=== PATIENT | male | born 1945 | race Caucasian/White ===

== ENCOUNTER 2021-03-21 13:51 | Outpatient (CLI) | payer MEDICARE, OTHER, SELFPAY ==
--- NOTE | ~2021-03-21 | XR_ITS ---
XR lumbar spine 2-3V DATE: 03/21/2021 14:13 INDICATION: Low back pain TECHNIQUE: AP, lateral, coned lateral lumbosacral views COMPARISON: None FINDINGS: There is prominent degenerative spurring of the lower thoracic spine. There is moderately severe degenerative disc disease at L1 to. There is moderate degenerative disease at L3-4 and L4-5 and severe degenerative disc disease at L5-S1. There is prominent degenerative change at the apophyseal joints of the mid and lower lumbar and lumbo sacral area with associated grade 1 anterolisthesis at L4-5. The included lower thoracic and lumbar pedicles are intact. No fracture or bone destruction of the safia mbar spine. The sacroiliac joints are intact. IMPRESSION: Degenerative changes of the thoracic and lumbar spine Reviewed, dictated and finalized at location B.
== END 2021-03-21 13:52 | disposition home or self-care (01) ==
LOC: ANHIMG 13:57
PROVIDERS: PCP Family Medicine; Visit Provider Nurse Practitioner Family
DX: M51.34 Other intervertebral disc degeneration, thoracic region (principal); M51.36 Other intervertebral disc degeneration, lumbar region
CPT/HCPCS: 72100

== ENCOUNTER 2022-09-28 08:17 | Outpatient (CLI) | payer MEDICARE, OTHER, SELFPAY ==
--- NOTE | 2022-10-13 17:24 | WPDSLEEPSTUD ---
Sleep Study Date of Study: 09/28/22 Ordering Provider: Arnav You DO Interpreting Physician: Amanda Huber MD Sleep Study Type: Polysomnogram Height: 1.78 m Weight: 104.326 kg Body Mass Index: 33.0 Neck Circumference (inches): 17 [place]: 10 Reason for Sleep Study Hypersomnia Sleep History Dereje Domingo is a 77-year-old man with complaints of difficulty sleeping for several years. He wakes up 3 times on average per night to urinate. He was referred for sleep study after a diagnosis of atrial fibrillation. He almost never gets a completely full restful night of sleep. he rarely awakens from sleep feeling short of breath. He occasionally awakens at night with heartburn, belching or coughing. He occasionally snores but rarely loudly enough that others complain about it. He frequently has trouble sleeping with a cold. He does not wake up gasping for breath at night. He rarely has breathing problems at night observed by others. He rarely sweats excessively at night. He rarely notices his heart pounding or beating irregularly at night. He frequently falls asleep during the day, rarely falls asleep involuntarily, never falls asleep while driving. He does not have loss of muscle tone with strong emotion. He does not have daytime difficulties due to excessive sleepiness. He rarely feels paralyzed on waking or falling asleep. He occasionally has vivid dreamlike scenes on waking or falling asleep. He has never frayed to go to sleep. He occasionally has nightmares. He rarely remembers his dreams. He frequently has racing thoughts. He rarely feels sad or depressed. He occasionally has anxiety. He rarely has muscular tension. He rarely notices parts of his body jerking. He rarely kicks at night. He occasionally has crawling and aching feelings in his legs. Occasionally has leg cramps. He does not morning jaw pain. He does not grind his teeth at night. He occasionally is bothered by pain during the day. He indicates that he has rheumatoid arthritis, leg cramps, and he has early stage neuropathy. He rarely is awakened by pain at night other than leg cramps. He frequently wakes up feeling stiff in the morning in his hands. He rarely wakes up with sore achy muscles. He does not wake up with pain in the neck and spine. He has insomnia, he takes antacids regularly for Grover's esophagus. He has palpitations. he has not had a change in his weight in the last year. Normal bedtime is 9:00 p.m. falling asleep within 10 minutes, waking 3 or 4 times at night to urinate. Sometimes while awake at night, he will get a drink of water and sometimes he will lie in bed awake trying to get back to sleep. It can take him up to an hour and a half to return to sleep although it is usually 10 minutes. He wakes in the morning by 6:15. He keeps the same schedule on the weekends. He estimates getting between 5-7 hours of interrupted sleep at night. He takes naps in the afternoon or evening however short naps are not refreshing. He feels better in the morning compared to other times of day. Habits: Quit tobacco 52 years ago. Previously drank caffeine, 3 cups a day. Not any more. Alcohol 3-4 drinks per week. 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
[2022-10-17 14:15] VITALS: BMI 33.0
== END 2022-09-29 07:01 | disposition home or self-care (01) ==
LOC: ANHCSM 08:20
PROVIDERS: PCP Family Medicine; Visit Provider Internal Medicine Cardiovascular Disease
DX: G47.10 Hypersomnia, unspecified (principal)
CPT/HCPCS: 95810

== ENCOUNTER 2022-10-18 09:20 | Outpatient (CLI) | payer MEDICARE, OTHER, SELFPAY ==
--- NOTE | 2022-10-18 11:00 | NEURO_ITS ---
Impression: Patient reports a history of paresthesias in both feet. # Evidence of symmetric sensorimotor polyneuropathy. # Chronic neurogenic changes noted in bilateral EDB, bilateral gastrocnemius, right tibialis anterior and left flexor digitorum longus muscle indicating axonal changes, which could be secondary to neuropathy. # Clinical correlation recommended. Nerve Conduction Studies Anti Sensory Summary Table Stim Site NR Peak (ms) P-T Amp (?V) Site1 Site2 Delta-P (ms) Dist (cm) Mc (m/s) Left Sup Fibular Anti Sensory (Ant Lat Mall) 14 cm 4.5 13.5 14 cm Ant Lat Mall 4.5 16.0 36 Right Sup Fibular Anti Sensory (Ant Lat Mall) 14 cm 4.6 12.2 14 cm Ant Lat Mall 4.6 16.0 35 Left Sural Anti Sensory (Lat Mall) Calf 4.2 14.7 Calf Lat Mall 4.2 16.0 38 Right Sural Anti Sensory (Lat Mall) Calf 4.4 8.8 Calf Lat Mall 4.4 16.0 36 Motor Summary Table Stim Site NR Onset (ms) O-P Amp (mV) Site1 Site2 Delta-0 (ms) Dist (cm) Mc (m/s) Left Peroneal Motor (Vastus Med) Ankle 4.9 0.6 Popit Ankle 13.8 46.0 33 Popit 18.7 0.8 B Fib Ankle 10.6 36.0 34 B Fib 15.5 0.8 Right Peroneal Motor (Vastus Med) NO RESPONSE Ankle NR Popit Ankle 0.0 Popit NR B Fib Ankle 0.0 B Fib NR Left Tibial Motor (Abd Fitzpatrick Brev) Ankle 4.5 0.7 Knee Ankle 13.2 44.0 33 Knee 17.7 0.2 Right Tibial Motor (Abd Fitzpatrick Brev) Ankle 4.5 0.9 Knee Ankle 11.7 43.0 37 Knee 16.2 0.4 F Wave Studies NR F-Lat (ms) L-R F-Lat (ms) Left Peroneal (Mrkrs) (EDB) NO RESPONSE NR Right Peroneal (Mrkrs) (EDB) NO RESPONSE NR Left Tibial (Mrkrs) (Abd Hallucis) 65.38 Right Tibial (Mrkrs) (Abd Hallucis) NO RESPONSE NR EMG Side Muscle Nerve Root Ins Act Fibs Amp Dur Recrt Comment Right AntTibialis Dp Br Fibular L4-5 Nml Nml Nml Nml Reduced Right Gastroc Tibial S1-2 Nml Nml Nml Nml Reduced Right Fibularis Long Sup Br Fibular L5-S1 Nml Nml Nml Nml Nml Right Flex Dig Long Tibial L5-S2 Nml Nml Nml Nml Nml Right Ext Dig Brev Dp Br Fibular L5, S1 Nml Nml Incr Nml Reduced Left AntTibialis Dp Br Fibular L4-5 Nml Nml Nml Nml Nml Left Gastroc Tibial S1-2 Nml Nml Nml Nml Reduced Left Fibularis Long Sup Br Fibular L5-S1 Nml Nml Nml Nml Nml Left Flex Dig Long Tibial L5-S2 Nml Nml Nml Nml Reduced Left Ext Dig Brev Dp Br Fibular L5, S1 Nml Nml Incr Nml Reduced MTDD
== END 2022-10-18 09:21 | disposition home or self-care (01) ==
PROVIDERS: PCP Family Medicine; Visit Provider Physician Assistant
DX: G62.9 Polyneuropathy, unspecified (principal)
CPT/HCPCS: 95886; 95910

== ENCOUNTER 2022-10-20 10:59 | Outpatient (CLI) | payer MEDICARE, OTHER, SELFPAY ==
--- NOTE | 2022-11-10 01:12 | WPDSLEEPSTUD ---
Sleep Study Date of Study: 10/20/22 Ordering Provider: Arnav You DO Interpreting Physician: Amanda Huber MD Sleep Study Type: CPAP Titration Height: 1.78 m Weight: 104.326 kg Body Mass Index: 33.0 Neck Circumference (inches): 17.5 [place]: 10 Reason for Sleep Study * 09/28/2022, basic polysomnogram with mild obstructive sleep apnea, apnea-hypopnea index 6.4, desaturation 83% with mild snoring. He also has periodic limb movements disorder. PLM arousal index 94.9. Sleep History [place] Dom[place] is a 77-year-old man with complaints?of difficulty sleeping for several years.? He wakes up 3 times on average per night to urinate.? He was referred for sleep study after a diagnosis of atrial fibrillation.? He almost never gets a completely full restful night of sleep. ? he rarely awakens from sleep feeling short of breath.? He occasionally awakens at night with heartburn, belching or coughing.? He occasionally snores but rarely loudly enough that others complain about it.? ? He frequently has trouble sleeping with a cold.? He does not wake up gasping for breath at night.? He rarely has breathing problems at night observed by others.? He rarely sweats excessively at night.? He rarely notices his heart pounding or beating irregularly at night.? He frequently falls asleep during the day, rarely falls asleep involuntarily, never falls asleep while driving.? He does not have loss of muscle tone with strong emotion.? He does not have daytime difficulties due to excessive sleepiness.? He rarely feels paralyzed on waking or falling asleep.? He occasionally has vivid dreamlike scenes on waking or falling asleep.? He has never frayed to go to sleep.? He occasionally has nightmares.? He rarely remembers his dreams.? He frequently has racing thoughts.? He rarely feels sad or depressed.? He occasionally has anxiety.? He rarely has muscular tension.? He rarely notices parts of his body jerking.? He?rarely kicks at night.? He?occasionally has crawling and aching feelings in his legs.? Occasionally has leg cramps.? He does not morning jaw pain.? He does not grind his teeth at night.? He occasionally is bothered by pain during the day.? He indicates that he has rheumatoid arthritis, leg cramps, and he has early stage neuropathy.? He rarely is awakened by pain at night other than leg cramps.? He frequently wakes up feeling stiff in the morning in his hands.? He rarely wakes up with sore achy muscles.? He does not wake up with pain in the neck and spine.? He has insomnia, he takes antacids regularly for Grover's esophagus.? He has palpitations. ? he has not had a change in his weight in the last year. Normal bedtime is 9:00 p.m. falling asleep within 10 minutes, waking 3 or 4 times at night to urinate. Sometimes while awake at night, he will get a drink of water and sometimes he will lie in bed awake trying to get back to sleep.? It can take him up to an hour and a half to return to sleep although it is usually 10 minutes.? He wakes in the morning by 6:15.? He keeps the same schedule on the weekends.? He estimates getting between 5-7 hours of interrupted sleep at night.? He takes naps in the afternoon or evening however short naps are not refreshing.? He feels better in the morning compared to other times of day. Habits: ? Quit tobacco 52 years ago.? Previously drank caffeine, 3 cups a day.? Not any more.? Alcohol 3-4 drinks per week.? 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
[2022-11-10 01:27] VITALS: BMI 33.0
== END 2022-10-23 12:21 | disposition home or self-care (01) ==
PROVIDERS: PCP Family Medicine; Visit Provider Internal Medicine Cardiovascular Disease
DX: G47.33 Obstructive sleep apnea (adult) (pediatric) (principal); G47.61 Periodic limb movement disorder; I48.91 Unspecified atrial fibrillation; I10 Essential (primary) hypertension; K21.9 Gastro-esophageal reflux disease without esophagitis; E66.9 Obesity, unspecified; Z68.33 Body mass index [BMI] 33.0-33.9, adult; Z87.891 Personal history of nicotine dependence
CPT/HCPCS: 95811

== ENCOUNTER 2022-10-25 13:34 | Outpatient (CLI) | payer MEDICARE, OTHER, SELFPAY ==
--- NOTE | 2022-10-25 13:43 | ECHO_ITS ---
Patient Info Name: Dereje Domingo Age: 77 years : 1945 Gender: Male Ht: 70 in Wt: 235 lbs BSA: 2.33 m2 HR: 78 bpm BP: 127 / 68 mmHg Heart Rhythm: Atrial Fibrillation Technical Quality: Fair Exam Date: 10/25/2022 2:11 PM Exam Location: [facility] Patient Status: Outpatient Admit Date: 10/25/2022 Staff Ordering Physician: Arnav You DO Curatorial Assistant: Griselda Griffin RDCS Attending Provider: Arnav You DO Referring Physician: Avelino BURNETT; Exam Type: CA echo doppler color flow Study Info Indications - atrial fibrillation Complete two-dimensional, color flow and Doppler transthoracic echocardiogram is performed. Summary 1. Complete two-dimensional, color flow and Doppler transthoracic echocardiogram is performed. 2. Left ventricular chamber dimension is normal. 3. Left ventricular systolic function is normal, estimated at 60-65%. 4. There is mild concentric increased left ventricular wall thickness. 5. The left ventricular diastolic function is abnormal. 6. E/e' 10 is mildly elevated. 7. Atrial fibrillation. 8. Left atrial chamber dimension is moderately enlarged. 9. Right atrial chamber dimension is mildly enlarged. 10. There is mild aortic valve sclerosis. 11. The mitral valve has mildly calcified annulus. 12. There is mild mitral valve regurgitation. 13. No pulmonary hypertension, estimated pulmonary arterial systolic pressure is 26 mmHg. Left Ventricle E/e' 10 is mildly elevated. Atrial fibrillation. Left ventricular chamber dimension is normal. Left ventricular systolic function is normal, estimated at 60-65%. There is mild concentric increased left ventricular wall thickness. The left ventricular diastolic function is abnormal. Right Ventricle Right ventricular chamber dimension is normal. Right ventricular systolic function is normal. Left Atria Left atrial chamber dimension is moderately enlarged. Right Atria Right atrial chamber dimension is mildly enlarged. Aortic Valve The aortic valve is trileaflet. There is mild aortic valve sclerosis. There is no aortic valve stenosis. There is no aortic valve regurgitation. Pulmonic Valve There is no pulmonic regurgitation. Mitral Valve The mitral valve has mildly calcified annulus. There is no mitral valve stenosis. There is mild mitral valve regurgitation. Tricuspid Valve There is no tricuspid valve regurgitation. No pulmonary hypertension, estimated pulmonary arterial systolic pressure is 26 mmHg. Pericardium/Pleural There is no pericardial effusion. Inferior Vena Cava Normal inferior vena cava with >50% collapse upon inspiration consistent with normal right atrial pressure, 5 mmHg. Aorta The aortic root size at the sinus of Valsalva is normal. Left Ventricular Outflow Tract Name Value Normal LVOT 2D LVOT Diameter 2.1 cm LVOT Doppler LVOT Peak Gradient 5 mmHg LVOT Mean Gradient 3 mmHg LVOT VTI 20 cm LVOT VTI/AV VTI Ratio 0.9 LVOT Stroke Volume 74 ml LVOT CO 16.8 l/min LVOT CI
== END 2022-10-25 13:35 | disposition home or self-care (01) ==
LOC: ANHCARD 13:34
PROVIDERS: PCP Family Medicine; Visit Provider Internal Medicine Cardiovascular Disease
DX: I48.91 Unspecified atrial fibrillation (principal); I34.0 Nonrheumatic mitral (valve) insufficiency
CPT/HCPCS: 93306

== ENCOUNTER 2023-07-31 14:29 | Outpatient (CLI) | payer MEDICARE, OTHER, SELFPAY ==
[2023-07-31 14:46] LABS: Basophils Absolute Auto 0.1 K/mm3 (0.0-0.1); Basophils Percent Auto 0.7 % (0.2-1.2); Eosinophils Absolute Auto 0.3 K/mm3 (0-0.3); Eosinophils Percent Auto 4.2 % (0-4.4); Hematocrit 43.2 % (42.0-52.0); Immature Granulocyte Absolute 0.01 K/mm3 (0.00-0.031); Immature Granulocyte Percent A 0.1 % (0-0.5); Lymphocytes Percent Auto 26.7 % (18.3-44.2); Mean Corpuscular HGB Conc 34.7 g/dl (32-36); Mean Corpuscular Hemoglobin 34.6 pg (26-34); Mean Corpuscular Volume 99.5 fl (80-100); Mean Platelet Volume 8.8 fl (7.4-10.4); Monocytes Absolute Auto 0.6 K/mm3 (0.1-0.6); Monocytes Percent Auto 7.7 % (2.6-8.5); Neutrophils Absolute Auto 4.3 K/mm3 (1.3-6.7); Neutrophils Percent Auto 60.6 % (45.5-73.1); Platelet Count Result 348 k/mm3 (150-375); Red Blood Count 4.34 M/mm3 (4.6-6.20); Red Cell Distribution Width 12.1 % (11.5-14.5); White Blood Count 7.1 K/mm3 (4.5-10.0)
[2023-07-31 16:51] LABS: Immunoglobulin A 65 mg/dL (70-400); Immunoglobulin G 1569 mg/dL (700-1600); Immunoglobulin M 48 mg/dL (40-230)
[2023-07-31 17:04] LABS: Alanine Aminotransferase 23 U/L (6-50); Albumin Level 4.1 g/dL (3.5-5.1); Alkaline Phosphatase 76 U/L (38-126); Anion Gap 8 mmol/L (8-16); Aspartate Amino Transferase 30 U/L (17-59); Bilirubin,Total 0.5 mg/dL (0.2-1.3); Blood Urea Nitrogen 19 mg/dL (9-20); Calcium 9.2 mg/dL (8.4-10.2); Carbon Dioxide 23 mmol/L (22-30); Chloride 102 mmol/L (98-107); Estimated Glomerular Filt Rate > 60; Glucose 132 mg/dL (65-110); Potassium 4.1 mmol/L (3.4-5.0); Sodium 133 mmol/L (137-145)
[2023-08-01 23:53] LABS: Kappa\\Lambda Light Chains 0.15 (0.26-1.65); Lambda Light Chain 81.1 mg/L (5.7-26.3)
[2023-08-03 19:28] LABS: Albumin 3.9 g/dL (3.8-4.8); Alpha 1 Globulin 0.3 g/dL (0.2-0.3); Alpha 2 Globulin 0.8 g/dL (0.5-0.9); Beta 1 Globulin 0.4 g/dL (0.4-0.6); Gamma Globulin 1.3 g/dL (0.8-1.7); Protein, Total 6.8 g/dL (6.1-8.1)
== END 2023-07-31 14:30 | disposition home or self-care (01) ==
LOC: ANHLAB 14:32
PROVIDERS: PCP Family Medicine; Visit Provider Internal Medicine Hematology & Oncology
DX: D47.2 Monoclonal gammopathy (principal)
CPT/HCPCS: 36415; 80053; 82784; 83883; 84155; 84165; 85025

== ENCOUNTER 2023-08-01 12:27 | Outpatient (CLI) | payer MEDICARE, OTHER, SELFPAY ==
--- NOTE | ~2023-08-01 | XR_ITS ---
EXAMINATION: BONE SURVEY/METASTATIC SURVEY DATE: 08/01/2023 INDICATION: MGUS. Assess for multiple myeloma. TECHNIQUE: A skeletal survey was performed including AP views of the chest, abdomen and pelvis; AP an d lateral/lateral swimmers views of the cervical, thoracic and lumbar spine; lateral view of the skul l, and AP and lateral views of the appendicular skeleton excluding the hands and feet. COMPARISON: Chest radiograph dated 06/27/2019 FINDINGS: Mild streaky opacities at bilateral lung bases and favor atelectasis over pneumonia. Heart size is no rmal. Large hiatal hernia. Moderate spondylosis throughout the cervical, thoracic and lumbar spine. U nchanged chronic mild anterior wedging of several mid to lower thoracic vertebral bodies. No suspicio us lytic or blastic bone lesions. There is some heterotopic ossification at the right lesser trochant er and along the musculature at the posterior right thigh which likely sequela of old trauma. IMPRESSION: 1. No suspicious lytic or blastic bone lesions to suggest multiple myeloma or other metastatic diseas e. Reviewed, dictated and finalized at location A. IMPRESSION: 1. No suspicious lytic or blastic bone lesions to suggest multiple myeloma or o ther metastatic disease.
== END 2023-08-01 12:28 | disposition home or self-care (01) ==
LOC: ANHIMG 12:28
PROVIDERS: PCP Family Medicine; Visit Provider Internal Medicine Hematology & Oncology
DX: D47.2 Monoclonal gammopathy (principal)
CPT/HCPCS: 77075

== ENCOUNTER 2024-03-04 13:48 | Outpatient (CLI) | payer MEDICARE, OTHER, SELFPAY ==
[2024-03-04 14:03] LABS: Basophils Absolute Auto 0.1 K/mm3 (0.0-0.1); Basophils Percent Auto 0.7 % (0.2-1.2); Eosinophils Absolute Auto 0.1 K/mm3 (0-0.3); Eosinophils Percent Auto 1.5 % (0-4.4); Hemoglobin 14.6 g/dL (14.0-18.0); Immature Granulocyte Absolute 0.03 K/mm3 (0.00-0.031); Immature Granulocyte Percent A 0.3 % (0-0.5); Lymphocytes Absolute Auto 1.25 K/mm3 (0.9-3.2); Lymphocytes Percent Auto 13.2 % (18.3-44.2); Mean Corpuscular HGB Conc 34.8 g/dl (32-36); Mean Corpuscular Hemoglobin 34.4 pg (26-34); Mean Corpuscular Volume 99.1 fl (80-100); Monocytes Absolute Auto 0.5 K/mm3 (0.1-0.6); Monocytes Percent Auto 5.2 % (2.6-8.5); Neutrophils Absolute Auto 7.5 K/mm3 (1.3-6.7); Neutrophils Percent Auto 79.1 % (45.5-73.1); Platelet Count Result 358 k/mm3 (150-375); Red Blood Count 4.24 M/mm3 (4.6-6.20); Red Cell Distribution Width 12.8 % (11.5-14.5); White Blood Count 9.4 K/mm3 (4.5-10.0)
[2024-03-04 16:36] LABS: Alanine Aminotransferase 24 U/L (6-50); Alkaline Phosphatase 92 U/L (38-126); Anion Gap 9 mmol/L (4-12); Aspartate Amino Transferase 32 U/L (17-59); Bilirubin,Total 0.4 mg/dL (0.2-1.3); Blood Urea Nitrogen 22 mg/dL (9-20); Calcium 8.7 mg/dL (8.4-10.2); Carbon Dioxide 25 mmol/L (22-30); Chloride 99 mmol/L (98-107); Estimated Glomerular Filt Rate > 60; Glucose 138 mg/dL (65-110); Potassium 3.9 mmol/L (3.4-5.0); Sodium 133 mmol/L (137-145)
== END 2024-03-04 13:49 | disposition home or self-care (01) ==
LOC: ANHLAB 13:50
PROVIDERS: PCP Family Medicine; Visit Provider Internal Medicine Hematology & Oncology
DX: D47.2 Monoclonal gammopathy (principal)
CPT/HCPCS: 36415; 80053; 85025

== ENCOUNTER 2024-05-29 09:41 | Outpatient (CLI) | payer MEDICARE, OTHER, SELFPAY ==
--- NOTE | ~2024-05-29 | XR_ITS ---
EXAMINATION: XR ribs LT 2V w CXR 2V DATE: 05/29/2024 10:05 INDICATION: Left upper rib pain. Fall. TECHNIQUE: Frontal and lateral views of the chest and 2 views on 3 radiographs of the left ribs were obtained. COMPARISON: Chest 2 views 06/17/19 FINDINGS: CHEST TWO VIEWS: There is mild atelectasis at the lung bases. No pleural effusion or pneumothorax. Th e heart size is normal. There is a moderate-sized hiatal hernia. There is mild chronic anterior wedgi ng of multiple vertebral bodies. LEFT RIBS: There is no acute rib fracture. IMPRESSION: 1. No acute rib fracture. 2. Moderate-sized hiatal hernia. Reviewed, dictated and finalized at location A. E MILLER HELPER
== END 2024-05-29 09:42 | disposition home or self-care (01) ==
PROVIDERS: PCP Family Medicine; Visit Provider Physician Assistant
DX: R07.81 Pleurodynia (principal); W19.XXXA Unspecified fall, initial encounter; K44.9 Diaphragmatic hernia without obstruction or gangrene
CPT/HCPCS: 71046; 71100

== ENCOUNTER 2024-11-07 07:58 | Outpatient (CLI) | payer MEDICARE, OTHER, SELFPAY ==
--- OUTSIDE RECORDS SUMMARY | 2024-11-07 08:04 | XMS_ITS | Continuity of Care Document ---
Author Organization [facility] Address [address] [place] [address] [place] [address] Phone Care Team Providers Care Information Security Architect Name Role Phone Hall OD, Tay Unavailable Unavailable Procedures Procedure Date Eye Exam & Treatment Refraction Eye Exam & Treatment Refraction Office/outpatient Visit, Est Office/outpatient Visit, Est Eye Exam & Treatment Refraction Office/outpatient Visit, Est Office/outpatient Visit, Est Office/outpatient Visit, Est Office/outpatient Visit, Est Office/outpatient Visit, Est Eye Exam & Treatment Refraction Advance Directives Directive Yes / No Effective Date File Name No Information Encounters Encounter Description Practice Location Reason(s) For Visit Diagnoses Date Provider Providers Copied on Encounter [facility], [address] [place] [address] [address], [place], [place], [id number], tel:[phone] [facility] No Information Mar- 8-201 0 Hall OD Tay. [address] , [address], [place], [address], [place]. tel:[phone] [facility], [address] [place] [address] [address], [place], [place], [id number], tel:[phone] [facility] No Information Dec- 9-200 9 Hall OD Tay. [address] , [address], [place], [place], [facility], [place]. tel:[phone] Office/outpat ient Visit, [facility], [address] [place] [address] [address], [place], [place], [id number], [place] tel:[phone] [facility] No Information Mar-1 7-200 9 Hall OD Tay. [address] , [address], [place], [place], [facility], [place]. tel:[phone] Office/outpat ient Visit, [facility], [address] [place] [address] [address], [place], [place], [id number], [place] tel:[phone] [facility] No Information Vazquez-0 8-200 8 Hall OD Tay. [address] , [address], [place], [place], [facility], . tel:[phone] [facility], [address] [place] [address] [address], [place], [place], [id number], [place] tel:[phone] [facility] No Information Andrés-2 7-200 8 Hall OD Tay. [address] , [address], [place], [place], [facility], [place]. tel:[phone] [facility], [address] [place] [address] [address], [place], [place], [id number], [place] tel:[phone] [facility] No Information Andrés-0 6-200 8 Hall OD Tay. [address] , [address], [place], [place], [facility], [place]. tel:[phone] [facility], [address] [place] [address] [address], [place], [place], [id number], [place] tel:[phone] [facility] No Information Andrés-0 2-200 8 Krishnasamy Toby. [address], [place], [place], [facility], . tel:[phone] Office/outpat ient Visit, [facility], [address] [place] [address] [address], [place], [place], [id number], tel:[phone] [facility] No Information May-3 1-200 8 Hall OD Tay. [address] [facility] , [address], [place], [place], [facility], [place]. tel:[phone] Office/outpat ient Visit, [facility], [address] [place] [address] [address], [place], [place], [id number], tel:[phone] [facility] No Information May-3 0-200 8 Hall OD Tay. [address] [facility] , [address], [place], [place], [facility], . tel:[phone] Office/outpat ient Visit, [facility], [address] [place] [address] [address], [place], [place], [id number], [place] tel:[phone] [facility] No Information May-2 9-200 8 Hall OD Tay. [address] [facility] , [address], [place], [place], [facility], [place]. tel:[phone] [facility], [address] [place] [address] [address], [place], [place], [id number], tel:[phone] [facility] No Information May-2 9-200 7 Hall OD Tay. [address] [facility] , [address], [place], [place], [facility], [place]. tel:[phone] Family History Family Member Type Diagnosis Age At Onset No Information Payers Payer name Insurance type Covered libertarian ID Authoriza tion(s) No Information Social History Type Description Quantity Date Captured Comments Sex Male Smoking Status No Information Chief Complaint And Reason For Visit No Information Reason For Referral Reason For Referral No Information History Of Present Illness Encounter Date Complaint History Of Prese nt Illness No Information Functional Status Date Functional Assessmen t No Information Instructions Date Instruction Additional Infor mation No Information Assessments Type Assessment Date No Information Patient Care Teams Name Effective Dates (start - stop) Status Members No Information
--- OUTSIDE RECORDS SUMMARY | 2024-11-07 08:05 | XMS_ITS | Clinical Summary ---
Author Organization [facility] Address [address] [place] [address] Care Team Providers Care Residential Sales Rep Name Role Phone Matt Martines MD Primary Care Provider Allergies Active Allergy Reactions Criticality Noted Date Comments Avocado Hives,Itching Medium 03/02/2021 Penicillins Swelling Medium Shellfish Containing Products Hives,Itching Medium Medications fluticasone (FLOVENT HFA) 110 mcg/actuation inhaler inhale 1 puff (110MCG) by inhalation route 2 times every day 1 Inhaler 1 3 Active albuterol HFA (PROVENTIL HFA,VENTOLIN HFA) 90 mcg/actuation inhaler inhale 2 puff by inhalation route every 4 - 6 hours as needed 0 3 Active multivitamin capsule Take 1 capsule by mouth daily Active losartan (COZAAR) 100 mg tablet Take 1 tablet (100 mg total) by mouth daily 2 9 Active amLODIPine (NORVASC) 5 mg tablet Take 1 tablet (5 mg total) by mouth daily 5 9 Active tiZANidine (ZANAFLEX) 2 mg tablet Take 1 tablet (2 mg total) by mouth every 6 (six) hours as needed for muscle spasms 30 tablet 9 Active tadalafiL (CIALIS) 20 mg tablet as needed 0 Active EPINEPHRINE INJ as needed 1 Active cetirizine (ZyrTEC) 10 mg tablet Take 1 tablet (10 mg total) by mouth Take 1 tablet every 4 days Active Eliquis 5 mg tablet Take 1 tablet (5 mg total) by mouth 2 (two) times a day 3 Active metoprolol XL (TOPROL-XL) 25 mg extended release tablet Take 1 tablet (25 mg total) by mouth daily 3 Active ferrous sulfate 325 mg (65 mg of elemental iron) tablet Take 1 tablet (325 mg total) by mouth every other day 3 Active cyanocobalamin (Vitamin B-12) 1,000 mcg tablet Take 1 tablet (1,000 mcg total) by mouth daily Active triamcinolone (KENALOG) 0.1 % cream APPLY TOPICALLY TO THE AFFECTED AREA TWICE DAILY FOR UP TO 4 WEEKS, THEN TAKE A 2 WEEK BREAK (NO FACE) NEEDED FOR FLARES 4 Active methylPREDNISo lone (Medrol, Sony,) 4 mg Dosepack follow package directions 1 packet 4 Active lansoprazole (PREVACID) 30 mg capsule TAKE 1 CAPSULE BY MOUTH TWICE DAILY BEFORE BREAKFAST AND BEFORE SUPPER 180 capsule 3 4 Active predniSONE (DELTASONE) 5 mg tablet Take 1 tablet by mouth once daily 30 tablet 5 Active methotrexate 2.5 mg tabletIndicati ons:Rheumatoid arthritis involving multiple sites with positive rheumatoid factor (HCC) TAKE 8 TABLETS BY MOUTH ONCE A WEEK 96 tablet 5 Active finasteride (PROSCAR) 5 mg tablet Take 1 tablet (5 mg total) by mouth daily 5 Active multivitamin-m inerals-lutein tablet Take 1 tablet by mouth daily 10/25/19 25 Discontinu ed(Duplica te order) methylPREDNISo lone (Medrol, Sony,) 4 mg Dosepack follow package directions 1 packet 4 10/25/19 25 Discontinu ed(Therapy completed) Active Problems Problem Noted Date Diagnosed Date Lumbago with sciatica, right side 03/23/2021 Muscle weakness (generalized) 03/23/2021 Advice given about 2019 novel coronavirus by tel juan carlos 12/18/2019 Assessment & Plan (12/18/2019 10:23 PM CDT): The [employer] has accumulated data on the clinical course of rheumatic diseases in the setting of the ongoing COVID pandemic. Per their evidence-based guidelines (see below) we continue to treat rheumatic diseases using the same medications as we always have. While these drugs are known to be immunomodulatory, they do not increase vulnerability so severely as to require them to be reduced or discontinued. We do not want to risk a flare of underlying autoimmune diseases which would require steroids (especially when requiring doses higher than 10 mg prednisone daily) given the greater risk imposed by steroids in this setting. The usual CDC precautions for minimizing coronavirus risk are appropriate. Frequently wash your hands with soap and water for at least 20 seconds. When soap and running water are unavailable, use an alcohol-based hand rub with at least 60% alcohol. Always wash hands that are visibly soiled. Avoid touching your eyes, nose, or mouth with unwashed hands. Avoid close contact with people who are sick and maintain social distancing. The CDC has recommended that ALL persons wear a fabric mask when out in public. Obviously this is a fast-moving issue and the CDC is providing regular updates as the course and extent of the epidemic is monitored. You may keep up to date at the CDC website: www.coronavirus.gov You may also find more information relevant to your questions at the [employer] webpage: arthritis.org. Click on the Coronavirus banner. It is important that you continue to stay at home as much as possible. We recommend only being outside of your home for essential reasons. Feel free to reach out to us if you have additional questions after you review this information. You may review the current [employer] Covid-19 clinical guidance for Patients with Rheumatic Diseases if you copy and paste the link below into your web browser: [email or web address].org/[email or web address]/[email or web address]-[email or web address]-[email or web address] seble-P [email or web address].pdf Of course, methotrexate should be placed on hold in the event you were to become ill and resumed only after complete recovery. Upper respiratory tract infection 08/20/2019 Assessment & Plan (08/20/2019 9:04 AM CDT): Most respiratory infections are viral. Per CDC recommendations, and to reduce increasing incidence of bacterial antibiotic resistance, antibiotics are not advised unless fever, deep chest cough with purulent sputum or symptoms lasting more than 10 days. For the time being would use Mucinex DM for cough, non-sedating antihistamine (such as Zyrtec), saline flushes, and nasal steroid spray (flonase) all available over the counter. Travel advice encounter 08/20/2019 Assessment & Plan (08/20/2019 9:23 AM CDT): You are at higher risk for serious illness from COVID-19 because of your age or because you have a serious long-term health problem, it is extra important for you to take actions to reduce your risk of getting sick with the disease. The CDC recommends avoiding cruise travel and non-essential air travel. Please visit the CDC website for up to date information: https://www.cdc.gov/coronavirus/2019-ncov/specific-groups/zgki-vltk-bnxkfiuzwvhw s.htm l Chronic right-sided low back pain without sciati ca 05/20/2019 Assessment & Plan (08/20/2019 9:03 AM CDT): Uncomfortable to sleep on his side. Tizanidine helps. Let me know when you are ready for physical therapy and I understand they offer PT at your residence Assessment & Plan (05/20/2019 10:36 PM TRAINING FACILITATOR): Increased R flank pain relieved with stretching and extension. No trauma recalled. Some difficulty finding comfortable bed-position. Symptoms present x 3 week. Will start muscle relaxant (tizanidine). Update imaging lumbar spine. Further management plans pend review of same. Encounter for long-term (cur rent) use of high-risk medication 01/08/2017 Assessment & Plan (12/18/2019 10:24 PM CDT): Images from the original note were not included. Lab Results Component Value Date WBC 7.8 08/20/2019 HGB 13.9 08/20/2019 HCT 41.6 08/20/2019 MCV 97.4 (H) 08/20/2019 LABPLAT 311 08/20/2019 Chemistry Lab Results Component Value Date SODIUM 135 08/20/2019 POTASSIUM 4.4 08/20/2019 CHLORIDE 101 08/20/2019 CO2 22 08/20/2019 ANIONGAP 12 08/20/2019 BUNSER 16 08/20/2019 CREATININE 0.69 (L) 08/20/2019 GLUCOSE 99 08/20/2019 CALCIUM 8.9 08/20/2019 BILITOT 0.7 08/20/2019 PROTEIN 6.4 11/05/2015 ALBUMIN 4.3 08/20/2019 GFRNAA 95 08/20/2019 ALKPHOS 63 08/20/2019 AST 23 08/20/2019 ALT 16 08/20/2019 Lab Results Component Value Date SEDRATE 15 08/20/2019 Lab Results Component Value Date CRP 18.7 (H) 08/20/2019 Lab Results Component Value Date SEDRATE 15 08/20/2019 Patient on medications requiring periodic lab monitoring for drug safety. Update lab as per orders written. Assessment & Plan (08/20/2019 9:03 AM CDT): Patient on immunosuppressive medications requiring periodic lab monitoring for drug safety. Assessment & Plan (05/20/2019 10:34 PM TRAINING FACILITATOR): Patient on immunosuppressive medications requiring periodic lab monitoring for drug safety. Update lab as per orders written. Assessment & Plan (02/07/2019 8:51 AM CDT): Patient on immunosuppressive medications requiring periodic lab monitoring for drug safety. Assessment & Plan (11/08/2018 9:13 AM CDT): Patient on immunosuppressive medications requiring periodic lab monitoring for drug safety. Update lab as per orders written. Assessment & Plan (07/22/2018 9:00 AM TRAINING FACILITATOR): Patient on immunosuppressive medications requiring periodic lab monitoring for drug safety. Assessment & Plan (04/26/2018 9:23 AM TRAINING FACILITATOR): Patient on immunosuppressive medications requiring periodic lab monitoring for drug safety. Update lab as per orders written. Assessment & Plan (01/25/2018 8:58 AM CDT): Patient on immunosuppressive medications requiring periodic lab monitoring for drug safety. Assessment & Plan (10/18/2017 10:03 AM CDT): Patient on immunosuppressive medications requiring periodic lab monitoring for drug safety. Update lab as per orders written. Assessment & Plan (07/10/2017 9:26 AM TRAINING FACILITATOR): Patient on immunosuppressive medications requiring periodic lab monitoring for drug safety. Update lab as per orders written. Assessment & Plan (04/09/2017 9:10 AM CDT): Patient on immunosuppressive medications requiring periodic lab monitoring for drug safety. Assessment & Plan (01/08/2017 9:15 AM CDT): Patient on immunosuppressive medications requiring periodic lab monitoring for drug safety. Update lab as per orders written. Class 1 obesity due to exces s calories with serious comorbidity and body mass index (BMI) of 31.0 to 31.9 in adult 01/08/2017 Assessment & Plan (05/20/2019 9:14 AM TRAINING FACILITATOR): An optimal BMI (body mass index) is between 20 and 25. Encourage weight loss. Each pound of weight lost unloads 3-4 pounds per square inch pressure from weight bearing joints. Diet and exercise are the keys to weight management. Assessment & Plan (02/07/2019 9:06 AM CDT): Has lost 15lbs exercising and watching diet. A BMI or body mass index between 20 and 25 is considered healthy. A combination of diet and exercise can help to attain/maintain a healthy BMI to improve vascular risk factors and diabetes risk. Each pound of weight lost unloads 3-4 pounds per square inch pressure from weight bearing joint. Assessment & Plan (11/08/2018 9:13 AM CDT): An optimal BMI (body mass index) is between 20 and 25. Encourage weight loss. Each pound of weight lost unloads 3-4 pounds per square inch pressure from weight bearing joints. Diet and exercise are the keys to weight management. Assessment & Plan (04/26/2018 9:23 AM TRAINING FACILITATOR): An optimal BMI (body mass index) is between 20 and 25. Encourage weight loss. Each pound of weight lost unloads 3-4 pounds per square inch pressure from weight bearing joints. Diet and exercise are the keys to weight management. Assessment & Plan (10/18/2017 9:51 AM CDT): An optimal BMI (body mass index) is between 20 and 25. Encourage weight loss. Each pound of weight lost unloads 3-4 pounds per square inch pressure from weight bearing joints. Diet and exercise are the keys to weight management. Assessment & Plan (07/10/2017 9:28 AM TRAINING FACILITATOR): An optimal BMI (body mass index) is between 20 and 25. Encourage weight loss. Each pound of weight lost unloads 3-4 pounds per square inch pressure from weight bearing joints. Diet and exercise are the keys to weight management. Assessment & Plan (01/08/2017 9:17 AM CDT): An optimal body mass index is between 20 and 25. Encourage weight loss. Each pound of weight lost unloads 3-4 pounds per square inch pressure from weight bearing joints. Diet and exercise are the keys to weight management. Asthma 08/26/2012 Overview (09/14/2016): Asthma Rheumatoid arthritis involvi ng multiple sites with positive rheumatoid factor 08/26/2012 Overview (03/16/2023): Images from the original note were not included. Assessment & Plan (12/18/2019 10:27 PM CDT): RA clinically stable on current med regimen. He reports mild (15-20 min) AM stiffness with minimal swelling hands/wrists reported. He remains active gardening and does note increased swelling of his hands/wrists with overuse. He remains on methotrexate 6 x 2.5 mg tablets (= 15 mg) weekly and tolerates same. He is aware of my planned skilled nursing in mid-February and our intention to transition his care to one of the other Rheumatologists at [facility]. Assessment & Plan (08/20/2019 9:04 AM CDT): RA clinically stable. Denies medication side effects. Continue present regimen Assessment & Plan (05/20/2019 10:34 PM TRAINING FACILITATOR): RA clinically stable on current med regimen. No med side effects reported. Overall satisfied with clinical course. Will update lab as per orders. Continue current med regimen unchanged. Assessment & Plan (02/07/2019 9:05 AM CDT): RA clinically stable. Tolerating methotrexate without side effects. Rapid3: 2.5 skewed by sciatica. Recurrent left corneal ulcer on antibiotics drops. Improving per pt report. Denies eye pain. Monitored closely by retail loan originator assistant who he is seeing today. Asked he have report sent to our office. Continue present regimen Update labs Assessment & Plan (11/08/2018 9:15 AM CDT): Scheduled follow up rheumatoid arthritis. Generally feels well. No med side effect reported. Rapid3 4.5. No med side effects reported. Continue same. Discussed possible dose increase methotrexate (he complains of slight increased pain with active golfing) but he prefers to defer for the present time being. Assessment & Plan (07/22/2018 9:00 AM TRAINING FACILITATOR): Rheumatoid arthritis follow up with continued improvement on current medication regimen. No side effects reported. Rapid3: 6.5. Continue present regimen Assessment & Plan (04/26/2018 9:23 AM TRAINING FACILITATOR): Scheduled follow up rheumatoid arthritis. Generally feels well. No med side effect reported. Rapid3 3.5. Continue same. Update lab as per orders. Assessment & Plan (01/25/2018 8:58 AM CDT): Rheumatoid arthritis follow up with continued improvement on current medication regimen. No side effects reported. Rapid3: 5.5. Increase arthralgias on days he plays golf. Continue present regimen Assessment & Plan (10/18/2017 10:02 AM CDT): RA clinically stable. Continue current med regimen. Rapid3 1.5. Update lab as per orders. Assessment & Plan (07/10/2017 9:26 AM TRAINING FACILITATOR): Clinically stable on present med regimen. No acute complaints. Continue same. Assessment & Plan (04/09/2017 9:11 AM CDT): Rheumatoid arthritis follow up with continued improvement on current medication regimen. No side effects reported. Rapid 3:2 He has occasional right shoulder pain. Aggravated it playing volleyball. He already received seasonal influenza vaccine. Grover's esophagus 04/08/2012 Assessment & Plan (12/18/2019 10:26 PM CDT): Avoid nonsteroidal antiinflammatory medications. Acetaminophen may be used for pain. Essential hypertension 10/24/2010 Overview (09/21/2017): Description: Hypertension Assessment & Plan (12/18/2019 10:25 PM CDT): Wt Readings from Last 3 Encounters: 12/18/19 97.5 kg (215 lb) 08/20/19 98.9 kg (218 lb) 05/20/19 99.3 kg (219 lb) Temp Readings from Last 3 Encounters: 08/20/19 37.1 C (98.7 F) (Oral) 05/20/19 36.6 C (97.8 F) (Oral) 02/07/19 36.9 C (98.4 F) (Oral) BP Readings from Last 3 Encounters: 08/20/19 122/70 05/20/19 128/80 02/07/19 120/78 Pulse Readings from Last 3 Encounters: 08/20/19 57 05/20/19 58 02/07/19 60 Denies headache, dizziness, chest pain, palpitations, shortness of breath, edema, orthopnea, PND. Assessment & Plan (08/20/2019 9:03 AM CDT): Stable on current medication regimen Assessment & Plan (05/20/2019 10:34 PM TRAINING FACILITATOR): Vitals BP 128/80 (BP Location: Right arm, Patient Position: Sitting) Pulse 58 Temp 36.6 C (97.8 F) (Oral) Resp 16 Ht 177.8 cm (5' 10) Wt 99.3 kg (219 lb) SpO2 97% BMI 31.42 kg/m Denies headache, dizziness, chest pain, palpitations, shortness of breath, edema, orthopnea, PND. Assessment & Plan (02/07/2019 9:05 AM CDT): Recent medication adjustment when bp spiked. Bp satisfactory today. Vitals BP 120/78 (BP Location: Left arm, Patient Position: Sitting) Pulse 60 Temp 36.9 C (98.4 F) (Oral) Resp 16 Ht 177.8 cm (5' 10) Wt 102.1 kg (225 lb) BMI 32.28 kg/m Assessment & Plan (11/08/2018 9:13 AM CDT): Vitals BP 124/76 (BP Location: Left arm, Patient Position: Sitting) Pulse 56 Temp 36.4 C (97.6 F) (Oral) Resp 18 Ht 177.8 cm (5' 10) Wt 108.9 kg (240 lb) SpO2 98% BMI 34.44 kg/m Denies headache, dizziness, chest pain, palpitations, shortness of breath, edema, orthopnea, PND. Mixed hyperlipidemia 10/24/2010 Overview (09/21/2017): Description: Hyperlipidemia Assessment & Plan (11/08/2018 9:15 AM CDT): Management per Dr. Martines. Atrial fibrillation Autoimmune disease Sleep apnea Resolved Problems Problem Noted Date Diagnosed Date Resolved Date Drug indicated 08/26/2012 10/18/2017 Overview (09/14/2016): LONG-TERM USE MEDS NEC Encounters Date Type Department Care Team Description 10/24/2024 9:51 AM CDT - 10/24/2024 11:59 PM CDT Hospital Encounter [facility] [address] [place] [address] Discharge Disposition: Discharge to home or self care 10/24/2024 9:00 AM CDT Office Visit [facility] at [facility] [address] [place] [address] Elba Malloy MD Rheumatoid arthritis involving multiple sites with positive rheumatoid factor (HCC) (Primary Dx); Encounter for long-term (current) use of high-risk medication; Obesity (BMI 30-39.9) from Last 3 Months Immunizations Immunization Administration Dates Next Due Influenza, Quad, Adjuvantate d, Intramuscular 03/12/2020 Influenza, Split 02/28/2013 Influenza, Trivalent, Adjuva nted, Intramuscular 02/27/2019,02/02/2018 Influenza, Trivalent, High D ose, Split, Preservative Free, Intramuscular 03/30/2022,03/08/2018,03/10/2017,02/20,03/17/2016,03/01/2015,03/11/2014 Influenza, Trivalent, IM (MDV) 03/28/2012,2010 Influenza, Unspecified 02/09/2019 Pfizer SARS-CoV-2 Monovalent Vaccination (12+ Yrs) PURPLE 10/18/2021,01/28/2021,07/29/2020,07/08 Pfizer Sars-Cov-2 Bivalent V accination (12+ YRS) 03/30/2022 Pneumococcal Conjugate PCV 13 03/11/2016, 015 Pneumococcal Polysaccharide PPV23 03/17/2016, ZOSTER Recombinant 02/27/2019,12/20/2018 Surgical History Surgery Date Site/Laterality Comments TONSILLECTOMY OTHER SURGICAL HISTORY Dental procedure COLONOSCOPY UPPER GASTROINTESTINAL ENDOSCOPY PROSTATE SURGERY Biopsy VASECTOMY 06/11/1974 - 06/10/1975 Medical History Medical History Date Comments Grover's esophagus History of colon polyps Asthma Rheumatoid arthritis (HCC) HTN (hypertension) Grover esophagus Colon polyp GERD (gastroesophageal reflux disease) 1982 Benign prostatic hyperplasia 2011 Chronic bronchitis (HCC) 1985 Neuromuscular disorder (HCC) Suspected neuropath y feet 2018 Atrial fibrillation (HCC) Heart disease AFIB/ September 08, 2022 Sleep apnea November 2022 Autoimmune disease RA Family History Medical History Relation Name Comments Alcohol abuse Daughter Blank Conklin Arthritis Daughter Blank Conklin Depression Daughter Blank Conklin Miscarriages / Stillbirths Daughter Blank Conklin Diabetes Father Jose Arreguin Diabetes melli tus; Hearing loss Father Jose Arreguin Heart attack Father Jose Arreguin Heart disease Father Jose Arreguin Heart disease ; Cause of : Heart disease Hypertension Father Jose Arreguin Hypertension; Obesity Father Jose Arreguin Anemia Mother Laurie Arreguin Arthritis Mother Laurie Arreguin Bleeding Disorder Mother Laurie Arreguin COPD Mother Laurie Arreguin COPD; Cause of : COPD Clotting disorder Mother Laurie Arreguin Depression Mother Laurie Arreguin Diabetes Mother Laurie Arreguin Heart disease Mother Laurie Arreguin Heart disease; Hypertension Mother Laurie Arregiun Osteoarthritis Mother Laurie Arreguin Osteoarthriti s; Heart attack Paternal Grandfather Dereje Arreguin Heart disease Paternal Grandfather Dereje Arreguin Hypertension Paternal Grandmother Navneet Stroke Paternal Grandmother Navneet Alzheimer's disease Sister 1 Amanda Bae Bleeding Disorder Sister 1 Amanda Bae Clotting disorder Sister 1 Amanda Bae Diabetes Sister 1 Amanda Bae Diabetes girma itus; Hypertension Sister 1 Amanda Bae Memory loss Sister 1 Amanda Bae Obesity Sister 1 Amandaphong Bae Stroke Sister 1 Amandaphong Bae Arthritis Sister 2 Lesvia Pittman Asthma Sister 2 Lesvia Pittman Allergy (severe) Son Tay Arreguin Asthma Son Tay Arreguin Relation Name Status Comments Daughter Blank Conklin Father Jose Arreguin (Age 73) Mother Laurie Arreguin (Age 92) Paternal Grandfather Dereje Arreguin Paternal Grandmother [place] Sister 1 Amanda Bae Sister 2 Lesvia Pittman Son Tay Arreguin Social History Tobacco Use Types Packs/Day Years Used Date Smoking Tobacco: Former Cigarettes 1.5 17 0 06/11/1959 - 06/10/1971 Smokeless Tobacco: Never Comments:was very difficult to quit, Will never go back! Alcohol Use Standard Drinks/Week Comments Yes 4 (1 standard drink = 0.6 oz pur e alcohol) AUDIT-C Answer Date Recorded Q1: How often do you have a drink containing alc ohol? 2-3 times a week 08/23/2022 Q2: How many drinks containi ng alcohol do you have on a typical day when you are drinking? 1 or 2 08/23/2022 Frequency of Binge Drinking Not on file 08/09 PHQ-2 Answer Date Recorded PHQ-2 Total Score (If total score is 3 or more points, staff should administer the PHQ-9) 0 04/22/2024 Personal Safety Answer Date Recorded Have you ever been in or are you currently in a harmful physical or emotional relationship or is someone making you feel afraid or unsafe? Denies 01/01/2023 Sex and Gender Information Value Date Recorded Sex Assigned at Not on file Legal Sex Male 1:01 PM TRAINING FACILITATOR Gender Identity Male 10/27/2019 4:05 PM CDT Sexual Orientation Not on file Obstetrics History Last Filed Vital Signs Vital Sign Reading Time Taken Comments Blood Pressure 130/76 10/24/2024 8:35 AM CDT Pulse 83 10/24/2024 8:35 AM CDT Temperature 36.8 C (98.2 F) 04/22/2024 2:08 PM TRAINING FACILITATOR Respiratory Rate 18 03/19/2024 4:18 PM CDT Oxygen Saturation 97% 10/24/2024 8:35 AM CDT Inhaled Oxygen Concentration - - Weight 110.2 kg (243 lb) 10/24/2024 8:35 AM CDT Height 177.8 cm (5' 10) 10/24/2024 8:35 AM CDT Body Mass Index 34.87 10/24/2024 8:35 AM CDT Plan of Treatment Health Maintenance Due Date Last Done Comments Hepatitis C Screening 1945 DTaP/Tdap/Td Vaccine (1 - Tdap) 1957 Hepatitis B Screening 1963 Abdominal Aortic Aneurysm (A AA) Screen 10/06/2011 Well Visit 65+ 10/06/2011 Fall Risk Assessment 01/02/2024 01/01/2023, 08/30/2021, 02/07/2019, Additional history exists Covid-19 Vaccine (2023- 5 season) 2024 03/30/2022, 10/18/2021, 01/28/2021, Additional history exists Influenza Vaccine (Season Ended) 2025 03/30/2022, 03/12/2020, 02/27/2019, Additional history exists Depression Screening 04/22/2025 04/22/2024, 08/30/2021, 02/07/2019 Pneumococcal vaccine 65+ Completed 016, 03/11/2016, 03/01/2015, Additional history exists Colon Cancer Screening-CT Colonography Discontinued 11/20/2016 Colon Cancer Screening-Colonoscopy Discontinued 11/20/2016 Colon Cancer Screening-DNA Stool Discontinued 11/21/19 17 Colon Cancer Screening-FIT Discontinued 11/20/2016 Colon Cancer Screening-FOBT Discontinued 11/20/2016 Colon Cancer Screening-Sigmoidoscopy Discontinued 11/20/2016 Colorectal Cancer Screening Discontinued Zoster Vaccine Completed 02/27/2019, 12/20/2018 Procedures Procedure Name Priority Date/Time Associated Diagnosis Comments EGFR Routine 10/24/2024 9:36 AM CDT Encounter for long-term (current) use of high-risk medication ERYTHROCYTE SEDIMENTATION RATE Routine 10/24/2024 9:36 AM CDT Rheumatoid arthritis involving multiple sites with positive rheumatoid factor (HCC) COMPREHENSIVE METABOLIC PANEL Routine 10/24/2024 9:36 AM CDT Encounter for long-term (current) use of high-risk medication CBC WITHOUT DIFFERENTIAL Routine 10/24/2024 9:36 AM CDT Encounter for long-term (current) use of high-risk medication COLONOSCOPY REPORT 11/20/2016 from Last 3 Months or Most Recently Relevant to Health Maintenance Results * eGFR (10/24/2024 9:36 AM CDT) eGFR >90 >=60 mL/min/1. 73 m2 Comment: Interpretive Data Reference Interval Normal >/= 90 mL/min/1.73m2 Mildly decreased* 60 - 89 mL/min/1.73m2 Mildly to moderately decreased 45 - 59 mL/min/1.73m2 Moderately to severely decreased 30 - 44 mL/min/1.73m2 Severely decreased 15 - 29 mL/min/1.73m2 Kidney Failure < 15 mL/min/1.73m2 *Relative to young adult level Estimated glomerular filtration rate is determined by the 2020 CKD-EPI equation recommended by the National Kidney Foundation (A Unifying Approach to GFR Estimation: Recommendations of the NKF-ASK Task Force on Reassessing the Inclusion of Race in Diagnosing Kidney Disease, JASN 202). The CKD-EPI equation should not be used for patients with unstable renal function and has not been validated in children and those over 70. Current interpretive data was last reviewed 2021. Blood 10/24/2024 9:36 AM CDT 10/24/2024 2:16 PM CDT Elba Malloy MD LAB BLOOD ORDERABLES Final Result [facility]3] [address] [employer] [place], [place] [id number] * (ABNORMAL) Erythrocyte sedimentation rate (10/24/2024 9:36 AM CDT) Erythrocyte sedimentation rate 21(H) 1 - 20 mm/hr Blood 10/24/2024 9:36 AM CDT 10/24/2024 2:16 PM CDT Elba Malloy MD LAB BLOOD ORDERABLES Final Result Performing Organization Address City/[facility]/ZIP Co de Phone Number [facility]3] [address] Department [employer] [place], [place] [id number] * (ABNORMAL) CBC without differential (10/24/2024 9:36 AM CDT) WBC 6.21 3.80 - 9.90 K/cumm Hgb 15.0 13.0 - 17.5 g/dL [facility]3] Hct 44.2 38.9 - 50.3 % [facility]3] Plt 353 150 - 400 K/cumm [facility]3] MPV 9.0(L) 9.1 - 12.3 fL [facility]3] RBC 4.44 4.30 - 5.80 M/cumm [facility]3] MCV 99.5(H) 81.3 - 96.4 fL [facility]3] MCH 33.8(H) 27.1 - 33.3 pg [facility]3] MCHC 33.9 32.3 - 35.7 g/dL [facility]3] RDW CV 13.4 11.1 - 14.9 % [facility]3] RDW SD 48.4(H) 35.7 - 48.1 fL [facility]3] NRBC abs 0.00 0.00 - 0.01 K/cumm [facility]3] Blood 10/24/2024 9:36 AM CDT 10/24/2024 2:16 PM CDT us Elba Malloy MD LAB BLOOD ORDERABLES Final Result [facility]3] [address] Department [place] [address] * (ABNORMAL) Comprehensive metabolic panel (10/24/2024 9:36 AM CDT) Sodium 135 135 - 145 mmol/L Potassium, pl 4.5 3.3 - 4.9 mmol/L [facility]3] Chloride 101 97 - 110 mmol/L [facility]3] CO2 21(L) 22 - 32 mmol/L [facility]3] Anion gap 13 2 - 15 mmol/L [facility]3] BUN 16 6 - 25 mg/dL [facility]3] Creatinine 0.68(L) 0.80 - 1.30 mg/dL [facility]3] Glucose 108 70 - 199 mg/dL [facility]3] Comment: Interpretive Data Fasting glucose >/= 126 mg/dl is diagnostic for diabetes. Fasting is defined as no caloric intake for at least 8 hours. Fasting glucose between 100 mg/dl to 125 mg/dl is diagnostic of prediabetes. In a patient with classic symptoms of hyperglycemia or hyperglycemic crisis, a random glucose >/= 200 mg/dl is diagnostic for diabetes. In the absence of unequivocal hyperglycemia, results should be confirmed by repeat testing. The classification and Diagnosis of Diabetes Diabetes Care 202; 46: S19-S40. Current interpretive data was last revised 2022. Calcium 9.1 8.5 - 10.3 mg/dL [facility]3] Bilirubin, total 0.4 0.1 - 1.2 mg/dL [facility]3] Protein, pl 7.2 6.5 - 8.5 g/dL [facility]3] Albumin 4.1 3.5 - 5.0 g/dL [facility]3] Alk phos 76 40 - 130 Units/L [facility]3] ALT 18 7 - 55 Units/L [facility]3] AST 26 10 - 50 Units/L [facility]3] Blood 10/24/2024 9:36 AM CDT 10/24/2024 2:16 PM CDT Elba Malloy MD LAB BLOOD ORDERABLES Final Result [facility]3] [address] Department [place] [address] * COLONOSCOPY REPORT (11/20/2016) Anatomical Region Laterality Modality Other Narrative 11/20/2016 Ordered by an unspecified provider. Historical Provider GI PROCEDURE ORDERABLES F inal Result from Last 3 Months or Most Recently Relevant to Health Maintenance Insurance MEDICARE [facility] Address: [facility] [address] [place] [address] [facility] Advance Directives For more information, please contact: [phone] * Full Code (Latest Code Status on File) Date Activated Date Inactivated Comments 01/01/2023 8:12 AM 01/01/2023 12:29 PM * Full Code Date Activated Date Inactivated Comments 01/06/2020 8:43 AM 01/06/2020 3:14 PM Care Teams Residential Sales Rep Relationship Specialty Start Date End Date Matt Martines MD [address] [address] PCP - General Family Medicine 04/09/17
--- OUTSIDE RECORDS SUMMARY | 2024-11-07 08:05 | XMS_ITS ---
Author Name Auto Generated, Auto Generated Organization [facility] Address [address] [place] [address] Phone [phone] Care Team Providers Care Research Associate Policy Name Role Phone Matt Martines Emmanuel [phone] Functional Status No Results Mental Status No Results Allergies and Intolerances No Known Allergies Encounters Program Name Primary Diagnosis Admission Date/Time Dis charge Date/Time null SunNovember 08 07:59:00 EDT 2015 Problems Active Concerns * Low back pain, unspecified* Code: * Start Date: SunMar 22 00:00:00 EDT 2020 * End Date: * Text: * Lumbago with sciatica, right side* Code: * Start Date: SunMar 22 00:00:00 EDT 2020 * End Date: * Text: * Muscle weakness (generalized)* Code: * Start Date: SunMar 22 00:00:00 EDT 2020 * End Date: * Text: Reason for Referral Past Medical History
--- OUTSIDE RECORDS SUMMARY | 2024-11-07 08:05 | XMS_ITS ---
Author Name Auto Generated, Auto Generated Organization [facility] Address [address] [place] [address] Phone [phone] Care Team Providers Care It Coordinator Name Role Phone Matt Martines [phone] Functional Status Mental Status Allergies and Intolerances Encounters Problems Reason for Referral Past Medical History
--- OUTSIDE RECORDS SUMMARY | 2024-11-07 08:05 | XMS_ITS | Clinical Summary ---
Author Organization [facility] Katelyn Rapp Address [address] [place] [address] Care Team Providers Care Room Server Name Role Phone Matt Martines MD Primary Care Provider [phone] Allergies Active Allergy Reactions Criticality Noted Date Comments Penicillins Swelling Medium 07/31/2023 Medications apixaban (Eliquis) 5 mg tablet Take 5 mg by mouth 2 times daily. 3 Active ferrous sulfate 325 mg (65 mg iron) tablet Take 325 mg by mouth daily with breakfast. 3 Active lansoprazole (PREVACID) 30 mg Capsule, Delayed Release(E.C.) TAKE 1 CAPSULE BY MOUTH TWICE DAILY BEFORE BREAKFAST AND BEFORE SUPPER 3 Active methotrexate (RHEUMATREX) 2.5 mg Tablet TAKE 8 TABLETS BY MOUTH ONCE A WEEK 4 Active metoprolol succinate (TOPROL XL) 25 mg Extended Release 24 hour tablet Take 25 mg by mouth daily. 3 Active amlodipine besylate (AMLODIPINE ORAL) Take by mouth. Activ e losartan potassium (LOSARTAN ORAL) Take by mouth. Active fluticasone propionate (FLOVENT HFA) 44 mcg/Actuation HFA Aerosol Inhaler Take 2 Puffs by inhalation 2 times daily. Active FOLIC ACID ORAL Take by mouth. Active albuterol sulfate HFA 90 mcg/actuation aerosol inhaler Take 2 Puffs by inhalation every 6 hours as needed for Shortness of Breath. Active cyanocobalamin 1,000 mcg Tablet Take 1,000 mcg by mouth daily. Active multivitamins-m inerals-lutein (CENTRUM SILVER) Tablet Take 1 Tablet by mouth daily. Active triamcinolone acetonide (KENALOG) 0.1 % Cream APPLY TOPICALLY TO THE AFFECTED AREA TWICE DAILY FOR UP TO 4 WEEKS, THEN TAKE A 2 WEEK BREAK (NO FACE) NEEDED FOR FLARES 4 Active predniSONE (DELTASONE) 5 mg tablet Take 5 mg by mouth daily. Active tadalafiL (CIALIS) 20 mg tablet Take 1 Tablet by mouth daily. 4 Active Active Problems No known active problems Encounters Date Type Department Care Team Description 11/04/2024 External Device Data [facility] Provider, Abstract 11/04/2024 External Device Data [facility] Provider, Abstract 10/29/2024 External Device Data [facility] Provider, Abstract 10/28/2024 External Device Data [facility] Provider, Abstract 10/22/2024 Orders Only Initial Department [address] [facility] [facility] [address] [place]: [place] [address] Provider, Historical 10/14/2024 External Device Data [facility] Provider, Abstract 08/27/2024 External Device Data [facility] Provider, Abstract 08/16/2024 External Device Data [facility] Provider, Abstract 08/15/2024 External Device Data [facility] Provider, Abstract from Last 3 Months Family History Medical History Relation Name Comments Diabetes Father Heart Disease Father Diabetes Mother Heart Disease Mother Diabetes Sister 1 Heart Disease Sister 1 Relation Name Status Comments Daughter Alive Father Mother Sister 1 Alive Sister 2 Alive Son Alive Social History Tobacco Use Types Packs/Day Years Used Date Smoking Tobacco: Former Cigarettes Smokeless Tobacco: Never Tobacco Cessation:Counseling Given: Not Answered Alcohol Use Standard Drinks/Week Comments Yes 0 (1 standard drink = 0.6 oz pur e alcohol) Sex and Gender Information Value Date Recorded Sex Assigned at Male 08/03/2023 11:17 AM FLYING TEACHER Legal Sex Male 3:19 PM FLYING TEACHER Gender Identity Male 08/03/2023 11:17 AM FLYING TEACHER Sexual Orientation Straight 08/03/2023 11 :17 AM FLYING TEACHER Last Filed Vital Signs Vital Sign Reading Time Taken Comments Blood Pressure 129/83 03/10/2024 8:47 AM CDT Pulse 80 03/10/2024 8:47 AM CDT Temperature 36.7 C (98 F) 03/10/2024 8:47 AM CDT Respiratory Rate 18 03/10/2024 8:47 AM CDT Oxygen Saturation 97% 03/10/2024 8:47 AM CDT Inhaled Oxygen Concentration - - Weight 109.8 kg (242 lb) 03/10/2024 8:47 AM CDT Height 177.8 cm (5' 10) 07/31/2023 1:34 PM FLYING TEACHER Body Mass Index 34.72 07/31/2023 1:34 PM FLYING TEACHER Plan of Treatment Upcoming Encounters Date Type Department Care Team (Late st Contact Info) Description 11/07/2024 8:45 AM CDT Office Visit [facility] Oncology and Hematology - [place] [address] [facility] [address] [place] [address] Sanya Goodwin MD [address] [facility] [address] [place] [address] Health Maintenance Due Date Last Done Comments DTAP/TDAP/TD VACCINES (1 - Tdap) 1965 RSV VACCINE (60+ or ) (1 - 1-dose 75+ series) 2021 INFLUENZA VACCINE (#1) 2024 2, 03/12/2020, 02/27/2019, Additional history exists PNEUMOCOCCAL VACCINE 50+ YEARS Completed 1 , 03/11/2016, 03/01/2015, Additional history exists ZOSTER VACCINE Completed 02/27/2019, 12/20/2018 Procedures Procedure Name Priority Date/Time Associated Diagnosis Comments IMMUNOFIXATION Routine 10/22/2024 8:21 AM CDT PROTEIN ELECTROPHORESIS W/REFLEX,SERUM Routine 10/22/2024 8:21 AM CDT KAPPA/LAMBDA LIGHT CHAINS Routine 10/22/2024 8:21 AM CDT IMMUNOGLOBULINS IGG IGA IGM Routine 10/22/2024 8:21 AM CDT from Last 3 Months Results * IMMUNOFIXATION (10/22/2024 8:21 AM CDT) IMMUNOFIXATION INTERP [facility] Comment: IgG lambda monoclonal band present. Test Performed at: [facility] [address] [address] Ivy Collier MD 10/22/2024 8:21 AM CDT 10/22/2024 8:21 AM CDT Sanya Goodwin MD CHEMISTRY ORDERABLES Final Resu lt Performing Organization Address [facility]/ZIP Co de Phone Number [facility] [phone] [facility] [address] [place] [address] * (ABNORMAL) KAPPA/LAMBDA LIGHT CHAINS (10/22/2024 8:21 AM CDT) Pathologist [facility] KAPPA FREE LIGHT CHAIN 12.6 3.3 - 19.4 mg/L [facility] LAMBDA FREE LIGHT CHAIN 75.5(H) 5.7 - 26.3 mg/L [facility] KAPPA/LAMBDA LIGHT CHAIN RATIO 0.17(L) 0.26 - 1.65 [facility] Comment: Free kappa/lambda ratio in serum of normal individuals is 0.26-1.65. Excess production of free kappa or lambda chains can alter this ratio. Monoclonal free light chains are found in serum of patients with multiple myeloma, Waldenstrom's macroglobulinemia, mu-heavy chain disease, primary amyloidosis, light chain deposition disease, monoclonal gammopathy of undetermined significance, and lymphoproliferative disorders. Measurement of free light chain concentration in serum is useful for diagnosis, prognosis, monitoring disease activity and following response to therapy of these disorders. Test Performed at: [facility] [address] [place] [address] Ivy Collier MD 10/22/2024 8:21 AM CDT 10/22/2024 8:21 AM CDT Sanya Goodwin MD CHEMISTRY ORDERABLES Final Resu lt [facility] [phone] [facility] [address] [place] [phone] * (ABNORMAL) IMMUNOGLOBULINS IGG IGA IGM (10/22/2024 8:21 AM CDT) Pathologist [facility] IGA 64(L) 70 - 320 mg/dL [facility] IGG 1343 600 - 1540 mg/dL [facility] IGM 49(L) 50 - 300 mg/dL [facility] Comment: Test Performed at: [facility] [address] [place] [phone] Ivy Collier MD 10/22/2024 8:21 AM CDT 10/22/2024 8:21 AM CDT Sanya Goodwin MD CHEMISTRY ORDERABLES Final Resu lt Performing Organization Address [facility] Co de Phone Number [facility] [phone] [facility] [address] [place] [phone] * (ABNORMAL) PROTEIN ELECTROPHORESIS W/REFLEX,SERUM (10/22/2024 8:21 AM CDT) Pathologist [facility] TOTAL PROTEIN 6.8 6.1 - 8.1 g/dL [facility] ALBUMIN SPE 3.9 3.8 - 4.8 g/dL [facility] ALPHA 1 GLOBULIN SPE 0.3 0.2 - 0.3 g/dL [facility] ALPHA 2 GLOBULIN SPE 0.8 0.5 - 0.9 g/dL [facility] Beta 1 Globulin 0.4 0.4 - 0.6 g/dL [facility] Beta 2 Globulin 0.3 0.2 - 0.5 g/dL [facility] GAMMA GLOBULIN 1.2 0.8 - 1.7 g/dL [facility] ABNORMAL PROTEIN BAND SPE 1.0(H) NONE DETECTED g/dL [facility] SPE INTERP [facility] Comment: Restricted band (M-spike) migrating in the gamma region. Consider serum immunofixation to rule out a monoclonal protein if clinically indicated. Test Performed at: [facility] [address] [address] Ivy Collier MD 10/22/2024 8:21 AM CDT 10/22/2024 8:21 AM CDT Sanya Goodwin MD CHEMISTRY ORDERABLES Final Resu lt [facility] [phone] [facility] [address] [phone] from Last 3 Months Insurance MEDICARE PART A AND B [facility] Care Teams Room Server Relationship Specialty Start Date End Date Matt Martines MD [address] [facility] [address] [place] [address] PCP - General Family Practice 07/30/23
--- OUTSIDE RECORDS SUMMARY | 2024-11-07 08:05 | XMS_ITS | Encounter Summary ---
Author Organization [facility] Address [address] [place] [address] Phone Care Team Providers Care Casualty Claim Adjuster Name Role Phone Matt Martines MD Primary Care Provider Encounter Details Date Type Department Care Team (Late st Contact Info) Description 10/18/2017 Orders Only [facility] ProviderBhumi [place] [facility] [place] [address] Social History Tobacco Use Types Packs/Day Years Used Date Smoking Tobacco: Former Smokeless Tobacco: Former Comments:Smoking History Pac ks/day: 2 Packs Alcohol Use Standard Drinks/Week Comments Yes 0 (1 standard drink = 0.6 oz pur e alcohol) Sex and Gender Information Value Date Recorded Sex Assigned at Not on file Legal Sex Male 1:01 PM CLIP BOLTER AND WRAPPER Gender Identity Male 10/27/2019 4:05 PM CDT Sexual Orientation Not on file documented as of this encounter Plan of Treatment Not on file documented as of this encounter Procedures Procedure Name Priority Date/Time Associated Diagnosis Comments DISCHARGE LABORATORY CUMULATIVE REPORT 10/18/2017 12:00 AM CDT documented in this encounter Results * DISCHARGE LABORATORY CUMULATIVE REPORT (10/18/2017 12:00 AM CDT) Narrative 10/18/2017 12:00 AM CDT Ordered by an unspecified provider. us Historical Provider LAB BLOOD ORDERABLES Beverley l Result documented in this encounter Visit Diagnoses Not on filedocumented in this encounter Care Teams Casualty Claim Adjuster Relationship Specialty Start Date End Date Matt Martines MD [address] [facility] [address] [place] [address] PCP - General Family Medicine 04/09/17 documented as of this encounter
--- OUTSIDE RECORDS SUMMARY | 2024-11-07 08:05 | XMS_ITS | Referral Summary ---
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 You may review the current [employer] Covid-19 clinical guidance for Patients with Rheumatic Diseases if you copy and paste the link below into your web browser: [email or web address] Of course, methotrexate should be placed on [...] CDC website for up to date information: https://www.cdc.gov/coronavirus/2019-ncov/specific-groups/qhwv-orvi-wyprfwtdiynh s.htm l Chronic right-sided low back pain without sciati ca 05/20/2019 Assessment & Plan (08/20/2019 9:03 AM CDT): Uncomfortable to sleep on his side. Tizanidine helps. Let me know when you are ready for physical therapy and I understand they offer PT at your residence Assessment & Plan (05/20/2019 10:36 PM MEDICAL POLICY SPECIALIST): Increased R flank pain relieved with stretching [...] safety. Assessment & Plan (05/20/2019 10:34 PM MEDICAL POLICY SPECIALIST): Patient on immunosuppressive medications requiring periodic lab [...] written. Assessment & Plan (07/22/2018 9:00 AM MEDICAL POLICY SPECIALIST): Patient on immunosuppressive medications requiring periodic lab monitoring for drug safety. Assessment & Plan (04/26/2018 9:23 AM MEDICAL POLICY SPECIALIST): Patient on immunosuppressive medications requiring periodic lab [...] written. Assessment & Plan (07/10/2017 9:26 AM MEDICAL POLICY SPECIALIST): Patient on immunosuppressive medications requiring periodic lab [...] 01/08/2017 Assessment & Plan (05/20/2019 9:14 AM MEDICAL POLICY SPECIALIST): An optimal BMI (body mass index) is [...] management. Assessment & Plan (04/26/2018 9:23 AM MEDICAL POLICY SPECIALIST): An optimal BMI (body mass index) is [...] management. Assessment & Plan (07/10/2017 9:28 AM MEDICAL POLICY SPECIALIST): An optimal BMI (body mass index) is [...] same. He is aware of my planned fci in mid-February and our intention to transition his care to one of the other Rheumatologists at [facility]. Assessment & Plan (08/20/2019 9:04 AM CDT): RA clinically stable. Denies medication side effects. Continue present regimen Assessment & Plan (05/20/2019 10:34 PM MEDICAL POLICY SPECIALIST): RA clinically stable on current med regimen. [...] report. Denies eye pain. Monitored closely by concrete block maker who he is seeing today. Asked he [...] being. Assessment & Plan (07/22/2018 9:00 AM MEDICAL POLICY SPECIALIST): Rheumatoid arthritis follow up with continued improvement on current medication regimen. No side effects reported. Rapid3: 6.5. Continue present regimen Assessment & Plan (04/26/2018 9:23 AM MEDICAL POLICY SPECIALIST): Scheduled follow up rheumatoid arthritis. Generally feels [...] orders. Assessment & Plan (07/10/2017 9:26 AM MEDICAL POLICY SPECIALIST): Clinically stable on present med regimen. No [...] regimen Assessment & Plan (05/20/2019 10:34 PM MEDICAL POLICY SPECIALIST): Vitals BP 128/80 (BP Location: Right arm, [...] 10/18/2017 Overview (09/14/2016): LONG-TERM USE MEDS NEC Immunizations Immunization Administration Dates Next Due Influenza, [...] Pneumococcal Polysaccharide PPV23 03/17/2016, ZOSTER Recombinant 02/27/2019,12/20/2018 Social History Tobacco Use Types Packs/Day Years [...] on file Legal Sex Male 1:01 PM MEDICAL POLICY SPECIALIST Gender Identity Male 10/27/2019 4:05 PM CDT Sexual Orientation Not on file Last Filed Vital Signs Vital Sign Reading Time Taken Comments Blood Pressure 130/76 10/24/2024 8:35 AM CDT Pulse 83 10/24/2024 8:35 AM CDT Temperature 36.8 C (98.2 F) 04/22/2024 2:08 PM MEDICAL POLICY SPECIALIST Respiratory Rate 18 03/19/2024 4:18 PM CDT Oxygen Saturation 97% 10/24/2024 8:35 AM CDT Inhaled Oxygen Concentration - - Weight 110.2 kg (243 lb) 10/24/2024 8:35 AM CDT Height 177.8 cm (5' 10) 10/24/2024 8:35 AM CDT Body Mass Index 34.87 10/24/2024 8:35 AM CDT Plan of Treatment Not on file Procedures Procedure Name Priority Date/Time Associated Diagnosis [...] of Race in Diagnosing Kidney Disease, JASN 2020). The CKD-EPI equation should not be used for patients with unstable renal function and has not been validated in children and those over 70. Current interpretive data was last reviewed 2021. Blood 10/24/2024 9:36 AM CDT 10/24/2024 2:16 PM CDT Elba Malloy MD LAB BLOOD ORDERABLES Final Result [facility] [address] Department of Laboratories [place], [place] [id number] * (ABNORMAL) Erythrocyte sedimentation rate (10/24/2024 9:36 AM CDT) Erythrocyte sedimentation rate 21(H) 1 - 20 mm/hr Blood 10/24/2024 9:36 AM CDT 10/24/2024 2:16 PM CDT Elba Malloy MD LAB BLOOD ORDERABLES Final Result Performing Organization Address [facility] Co de Phone Number [facility] [address] [place] [address] * (ABNORMAL) CBC without differential (10/24/2024 9:36 AM CDT) [facility] WBC 6.21 3.80 - 9.90 K/cumm Hgb 15.0 13.0 - 17.5 g/dL [facility] Hct 44.2 38.9 - 50.3 % [facility] Plt 353 150 - 400 K/cumm [facility] MPV 9.0(L) 9.1 - 12.3 fL [facility] RBC 4.44 4.30 - 5.80 M/cumm [facility] MCV 99.5(H) 81.3 - 96.4 fL [facility] MCH 33.8(H) 27.1 - 33.3 pg [facility] MCHC 33.9 32.3 - 35.7 g/dL [facility] RDW CV 13.4 11.1 - 14.9 % [facility] RDW SD 48.4(H) 35.7 - 48.1 fL [facility] NRBC abs 0.00 0.00 - 0.01 K/cumm [facility] Blood 10/24/2024 9:36 AM CDT 10/24/2024 2:16 PM CDT Elba Malloy MD LAB BLOOD ORDERABLES Final Result Performing Organization Address [facility]/ZIP Co de Phone Number [facility] [address] [place] [address] * (ABNORMAL) Comprehensive metabolic panel (10/24/2024 9:36 AM CDT) [facility] Sodium 135 135 - 145 mmol/L Potassium, pl 4.5 3.3 - 4.9 mmol/L [facility] Chloride 101 97 - 110 mmol/L [facility] CO2 21(L) 22 - 32 mmol/L [facility] Anion gap 13 2 - 15 mmol/L [facility] BUN 16 6 - 25 mg/dL [facility] Creatinine 0.68(L) 0.80 - 1.30 mg/dL [facility] Glucose 108 70 - 199 mg/dL [facility] Comment: Interpretive Data Fasting glucose >/= 126 [...] 2022. Calcium 9.1 8.5 - 10.3 mg/dL [facility] Bilirubin, total 0.4 0.1 - 1.2 mg/dL [facility] Protein, pl 7.2 6.5 - 8.5 g/dL [facility] Albumin 4.1 3.5 - 5.0 g/dL [facility] Alk phos 76 40 - 130 Units/L [facility] ALT 18 7 - 55 Units/L [facility] AST 26 10 - 50 Units/L [facility] Blood 10/24/2024 9:36 AM CDT 10/24/2024 2:16 PM CDT Elba Malloy MD LAB BLOOD ORDERABLES Final Result [facility] [address] [place] [address] * COLONOSCOPY REPORT (11/20/2016) Anatomical Region Laterality Modality Other Narrative 11/20/2016 Ordered by an unspecified provider. Historical Provider GI PROCEDURE ORDERABLES F inal Result from Last 3 Months or Most Recently Relevant to Health Maintenance Insurance MEDICARE [employer] [place] [employer]ICARE [employer] [place] MEDICARE [employer] Advance Directives For more information, please contact: [phone] * Full Code (Latest Code Status on File) Date Activated Date Inactivated Comments 01/01/2023 8:12 AM 01/01/2023 12:29 PM * Full Code Date Activated Date Inactivated Comments 01/06/2020 8:43 AM 01/06/2020 3:14 PM Care Teams Artist Blacksmith Relationship Specialty Start Date End Date Matt Martines MD [address] [facility] [address] [place] [address] PCP - General Family Medicine 04/09/17
[2024-11-07 08:16] LABS: Basophils Absolute Auto 0.1 K/mm3 (0.0-0.1); Basophils Percent Auto 1.2 % (0.2-1.2); Eosinophils Absolute Auto 0.3 K/mm3 (0-0.3); Eosinophils Percent Auto 4.8 % (0-4.4); Hemoglobin 14.9 g/dL (14.0-18.0); Immature Granulocyte Absolute 0.02 K/mm3 (0.00-0.031); Immature Granulocyte Percent A 0.3 % (0-0.5); Lymphocytes Absolute Auto 2.33 K/mm3 (0.9-3.2); Lymphocytes Percent Auto 38.8 % (18.3-44.2); Mean Corpuscular HGB Conc 34.7 g/dl (32-36); Mean Corpuscular Hemoglobin 34.2 pg (26-34); Mean Corpuscular Volume 98.6 fl (80-100); Mean Platelet Volume 8.7 fl (7.4-10.4); Monocytes Absolute Auto 0.6 K/mm3 (0.1-0.6); Monocytes Percent Auto 9.5 % (2.6-8.5); Neutrophils Absolute Auto 2.7 K/mm3 (1.3-6.7); Neutrophils Percent Auto 45.4 % (45.5-73.1); Platelet Count Result 338 k/mm3 (150-375); Red Blood Count 4.36 M/mm3 (4.6-6.20)
[2024-11-07 08:20] LABS: Blood Urea Nitrogen 16 mg/dL (8-26); Carbon Dioxide 23 mmol/L (22-30); Chloride 100 mmol/L (98-109); Estimated Glomerular Filt Rate > 60; Glucose 118 mg/dL (70-105); Ionized Calcium (POC) 1.18 mmol/L (1.11-1.31); Potassium 4.2 mmol/L (3.5-4.9); Sodium 135 mmol/L (138-146)
[2024-11-07 10:29] LABS: Alanine Aminotransferase 23 U/L (6-50); Albumin Level 4.1 g/dL (3.5-5.1); Alkaline Phosphatase 68 U/L (38-126); Anion Gap 9 mmol/L (4-12); Aspartate Amino Transferase 48 U/L (17-59); Bilirubin,Total 0.6 mg/dL (0.2-1.3); Blood Urea Nitrogen 17 mg/dL (9-20); Calcium 9.2 mg/dL (8.4-10.2); Carbon Dioxide 24 mmol/L (22-30); Chloride 101 mmol/L (98-107); Estimated Glomerular Filt Rate > 60; Glucose 115 mg/dL (65-110); Potassium 4.1 mmol/L (3.4-5.0); Sodium 134 mmol/L (137-145)
== END 2024-11-07 07:59 | disposition home or self-care (01) ==
LOC: ANHLAB 08:00
PROVIDERS: PCP Family Medicine; Visit Provider Internal Medicine Hematology & Oncology
DX: D47.2 Monoclonal gammopathy (principal)
CPT/HCPCS: 36415; 80047; 80053; 85025